=== PATIENT | female | born 2000 | race Caucasian/White ===

== ENCOUNTER 2023-11-21 05:56 | Day surgery (SDC) | payer MEDICAID ==
[~2023-11-21] VITALS: Ht 165.1 cm; Wt 47.5 kg
[2023-11-21] VITALS (21 sets, daily range): BP systolic 100–125; BP diastolic 64–81; PULSE 54–84; RESP 12–19; TEMP 98; O2SAT 96–100
[~2023-11-21 05:56] MED LIST: cefazolin 2gm/D5W 100mL 100 ML IV ONE; ringers solution, lacted 1,000 ML IV SCH
[2023-11-21] MEDS: famotidine 20mg tablet PO ONE (06:33)
[2023-11-21] MEDS ORDERED: LORA-268 PO (06:45)
[2023-11-21] MEDS ORDERED: LITH300C PO (06:45)
[2023-11-21] MEDS ORDERED: sevoflurane 250ml liquid IH ONE (08:03)
[2023-11-21] MEDS ORDERED: fentaNYL/PF 50MCG/1 ML 2ML syringe ONE (08:08)
[2023-11-21] MEDS ORDERED: midazolam 1 mg/ML 2ml injection ONE (08:09)
[2023-11-21] MEDS: BUPIVAcaine 2.5mg/ml inj 50ml vial (contains preservative) ONE (08:28)
[2023-11-21] MEDS: LIDOcaine 1% 30ml preserv. free vial ONE (08:29)
[2023-11-21] MEDS ORDERED: proCHLORperazine 10 MG/2 ml inj IV PRN (08:55)
[2023-11-21] MEDS ORDERED: morphine 2 MG/ML inj. syringe IV PRN (08:55)
[2023-11-21] MEDS ORDERED: ondansetron/PF 4mg/2ml inj IV PRN (08:55)
[2023-11-21] MEDS ORDERED: meperidine/PF 25mg/ml syringe IV PRN ×2 (08:55)
[2023-11-21] MEDS ORDERED: morphine 4 MG/ML inj SYRINge IV PRN (08:55)
[2023-11-21] MEDS ORDERED: ringers solution, lacted 1,000 ML IV SCH (08:55)
[2023-11-21] MEDS ORDERED: propofol inj 20 ML IV ONE (09:03)
[2023-11-21] MEDS ORDERED: rocuronium 10mg/ml inj IV ONE (09:03)
[2023-11-21] MEDS ORDERED: ondansetron/PF 4mg/2ml inj ONE (09:04)
[2023-11-21] MEDS ORDERED: dexamethasone sod phosphate 4mg/ml inj. ONE (09:04)
[2023-11-21] MEDS ORDERED: sugammadex 200mg/2ml injection IV ONE (09:04)
[2023-11-21] MEDS ORDERED: HYDROcodone/acetaminophen 5mg/325mg tablet PO PRN (09:30)
[2023-11-21] MEDS: meperidine/PF 25mg/ml syringe IV PRN (09:54)
[2023-11-21] MEDS: ondansetron 4mg rapidly disintigrating tab PO ONE (12:01)
== END 2023-11-21 12:20 | disposition home or self-care (01) ==
LOC: PAS 05:56
PROVIDERS: ATTEND Surgery
DX: K41.90 Unilateral femoral hernia, without obstruction or gangrene, not specified as recurrent (principal); J45.909 Unspecified asthma, uncomplicated; F41.9 Anxiety disorder, unspecified; F31.9 Bipolar disorder, unspecified; Z79.899 Other long term (current) drug therapy; Z98.890 Other specified postprocedural states; Z88.6 Allergy status to analgesic agent
CPT/HCPCS: 49659; 82948; C1781; J0690; J1100; J2175; J2250; J2405; J2704; J3010; J3490; J7030; J7120; S2900; Z7506; Z7508; Z7512; A4215; A4618